=== PATIENT | male | born 1985 | race Asian ===

== ENCOUNTER 2017-10-20 19:55 | Emergency (ER) | payer OTHER, SELFPAY ==
[2017-10-20 20:10] VITALS: BP 153/107; PULSE 73; RESP 16; TEMP 36.9; O2SAT 98; BMI 31.0
--- NOTE | 2017-10-20 20:10 | ED_ITS ---
HPI - Skin/Abscess/Foreign Bdy <XIANG Marcos - Last Filed: 10/20/17 22:19> General Chief complaint: Skin/Abscess/Foreign Body Stated complaint: ABCESS ON BUTT NOT SURE WHAT IT IS Time Seen by Provider: 10/20/17 20:09 History of Present Illness HPI narrative: 31-year-old male here for complaint of a small red raised area to his left lower extremity for the past few days. He denies any trauma to the area. He denies any drainage from the area. He states that it seems like this is an abscess as it has similar symptoms to a previous abscess that he had to his right hip area. He denies any fevers or chills. Increased pain with palpation of the area. No other concerns or complaints at this time. Related Data Previous Rx's Medication Instructions Recorded clindamycin HCl 300 mg PO QID #28 cap 10/20/17 Review of Systems <XIANG Marcos - Last Filed: 10/20/17 22:19> Constitutional Denies chills, Denies fever(s), Denies lethargy and Denies weakness Eyes Denies change in vision, Denies eye discharge, Denies irritation and Denies loss of vision ENT Ears, Nose, Mouth, and Throat: Denies change in voice, Denies neck pain and Denies sore throat Cardiovascular Denies chest pain, Denies irregular heart rhythm, Denies lightheadedness, Denies palpitations, Denies dyspnea, Denies dyspnea on exertion and Denies orthopnea Respiratory Denies cough, Denies dyspnea, Denies dyspnea on exertion and Denies wheezing Gastrointestinal Gastrointestinal: Denies abdominal pain, Denies change in bowel habits, Denies diarrhea, Denies nausea and Denies vomiting Genitourinary Denies hematuria, Denies flank pain, Denies urinary incontinence and Denies urinary urgency Musculoskeletal Denies neck pain Integumentary/Breasts Reports furuncle Neurologic Denies confusion, Denies loss of vision and Denies weakness Psychiatric Denies anxiety, Denies confusion, Denies depression, Denies homicidal ideation and Denies suicidal ideation Endocrine Denies palpitations Allergic/Immunologic Denies wheezing Exam <XIANG Marcos - Last Filed: 10/20/17 22:19> Initial Vital Signs Initial Vital Signs: Vital Signs Temperature 98.4 F 10/20/17 20:10 Pulse Rate 73 10/20/17 20:10 Respiratory Rate 16 10/20/17 20:10 Blood Pressure 153/107 H 10/20/17 20:10 Pulse Oximetry 98 10/20/17 20:10 Const General: cooperative and well developed Nutritional Appearance: well nourished Orientation: alert, awake, oriented x3 and not confused [facility] Mouth: oral mucosae normal and moist mucous membranes Eyes Conjunctivae: conjunctivae normal Sclera: sclerae normal Pupils: PERRL EOM: EOM intact bilaterally Resp Effort & Inspection: normal respiratory effort, able to speak in complete sentences, no respiratory distress and no use of accessory muscles Auscultation: clear to auscultation bilaterally, no rales, no rhonchi and no wheezes Cardio Rate: regular rate Rhythm: regular rhythm Heart Sounds: no click, no gallops, no murmurs and no rubs Skin General: no rashes or lesions noted, No jaundice and No petechiae Extrem General: full ROM, no clubbing, cyanosis or edema, no pedal edema and no calf tenderness Other: 2.5 cm erythematous circular lesion to the left lateral marshall. Slight induration and fluctuance felt. No drainage. No surrounding erythema. Distal CMS is intact. <Eris Del Rio DO - Last Filed: 10/20/17 22:46> Initial Vital Signs Initial Vital Signs: Vital Signs Temperature 98.4 F 10/20/17 20:10 Pulse Rate 73 10/20/17 20:10 Respiratory Rate 16 10/20/17 20:10 Blood Pressure 153/107 H 10/20/17 20:10 Pulse Oximetry 98 10/20/17 20:10 Procedures <XIANG Marcos - Last Filed: 10/20/17 22:19> Abscess I/D Site: lower extremity Side (if applicable): left Sedation/analgesia: none Local Anesthetic: lidocaine 1% Amount of anesthesia used (mL): 2 Technique: incised with #11 blade Irrigation: Yes Packing used?: none Course <XIANG Marcos - Last Filed: 10/20/17 22:19> Orders Ordered: Discontinued Medications Clindamycin HCl (Cleocin) 300 mg PO NOW ONE Stop: 10/20/17 21:33 Last Admin: 10/20/17 21:34 Dose: 300 mg Vital Signs - 8 hr 07/07/18 20:10 10/20/17 21:45 10/20/17 21:48 Temperature 98.4 F 98.0 F Pulse Rate 73 71 73 Respiratory Rate 16 16 18 Blood Pressure 153/107 H 138/96 H Blood Pressure [Left Arm] 144/97 H Pulse Oximetry 98 98 98 <Eris Del Rio DO - Last Filed: 10/20/17 22:46> Orders Ordered: Discontinued Medications Clindamycin HCl (Cleocin) 300 mg PO NOW ONE Stop: 10/20/17 21:33 Last Admin: 10/20/17 21:34 Dose: 300 mg Vital Signs - 8 hr 10/20/17 20:10 10/20/17 21:45 10/20/17 21:48 Temperature 98.4 F 98.0 F Pulse Rate 73 71 73 Respiratory Rate 16 16 18 Blood Pressure 153/107 H 138/96 H Blood Pressure [Left Arm] 144/97 H Pulse Oximetry 98 98 98 MDM - Skin/Abscess/Foreign Bdy <XIANG Marcos - Last Filed: 10/20/17 22:19> MDM Narrative Medical decision making narrative: Signs and symptoms presents as starting abscess to the left lower extremity. Incise and drainage was completed with small amount of purulent drainage removed. Wound was irrigated with 50 ml of normal saline he is placed on clindamycin. [id number] Tylenol and Motrin as needed for any discomfort. FOLLOW UP WITH PRIMARY CARE PROVIDER IN THE NEXT COUPLE DAYS FOR RE-EVALUATION. FOR ANY WORSENING SYMPTOMS RETURN EMERGENCY ROOM. Discharge Plan Departure Patient Disposition: Home, Self-Care Clinical Impression: Abscess of left lower extremity Discharge Date/Time: 10/20/17 21:49 Interventions: ED Discharge Assessment Last Done: 10/20/17 21:48 Instructions: DI for Incision and Drainage of a Skin Abscess Activity Restrictions/Additional Instructions: Signs and symptoms presents as starting abscess to the left lower extremity. Incision and drainage was completed in the emergency room to drain purulent material. You have been placed on antibiotic use as directed. Use over-the- counter Tylenol and Motrin as needed for any discomfort. Dress wound area daily with bacitracin and a dressing. Follow up with her primary care provider in the next couple days for re-evaluation. For any worsening symptoms return to the emergency room. Prescriptions: New clindamycin HCl 300 mg capsule 300 mg PO QID Qty: 28 RF: 0 Referrals: [facility] [Provider Group] <Eris Del Rio, DO - Last Filed: 10/20/17 22:46> Cosign ED Attending Wyatt Attestation: I was immediately available in the department for consultation. Documentation has been reviewed. I agree with assessment and plan.
[2017-10-20] MEDS: CLINDAMYCIN 150 MG CAPSULE 300 MG PO (21:34)
[2017-10-20 21:45] VITALS: BP 144/97; PULSE 71; RESP 16; TEMP 36.7; O2SAT 98
[2017-10-20 21:48] VITALS: BP 138/96; PULSE 73; RESP 18; O2SAT 98
== END 2017-10-20 21:49 | disposition home or self-care (01) ==
PROVIDERS: Emergency Provider Nurse Practitioner Family
DX: L02.31 Cutaneous abscess of buttock (principal)
CPT/HCPCS: 99283

== ENCOUNTER 2018-09-03 10:10 | Emergency (ER) | payer OTHER, SELFPAY ==
[2018-09-03 10:16] VITALS: BP 181/119; PULSE 96; RESP 18; TEMP 36.7; O2SAT 100; BMI 29.5
--- NOTE | 2018-09-03 12:28 | ED_ITS ---
HPI - Skin/Abscess/Foreign Bdy <XIANG Wright - Last Filed: 09/03/18 13:04> General Chief complaint: Skin/Abscess/Foreign Body Stated complaint: Cyst/infection below belly button Time Seen by Provider: 09/03/18 10:26 Source: patient Mode of arrival: ambulatory Limitations: no limitations History of Present Illness HPI narrative: 32-year-old male with a history of simple multiple abscesses, complains of an abscess below knees or starting about a week ago and increasing in size the past 3 days. Associated mild dull achy pain that is worse with touching the area, and is nonradiating. Denies fever, chills, nausea, vomiting, change in bowel movements, diaphoresis, shortness of breath, chest pain, or taking any medication. MD complaint: abscess/boil Onset (ago): day(s) Tetanus up to date: yes Severity: mild Quality: aching Pain Consistency: constant Relieving factors: none Exacerbating factors: movement Context: none Associated symptoms: denies other symptoms Treatments prior to arrival: none Related Data Previous Rx's Medication Instructions Recorded sulfamethoxazole-trimethoprim 1 tab PO BID #7 tab 09/03/18 [Bactrim DS] Allergies Allergy/AdvReac Type Severity Reaction Status Date / Time No Known Drug Allergies Allergy Verified 09/03/18 10:16 Review of Systems <XIANG Wright - Last Filed: 09/03/18 13:04> Constitutional Denies body ache(s), Denies chills, Denies fatigue, Denies fever(s), Denies malaise and Denies night sweats Eyes Denies change in vision ENT Ears, Nose, Mouth, and Throat: Denies vertigo and Denies dizziness Cardiovascular Denies chest pain and Denies dyspnea Respiratory Denies cough and Denies dyspnea Gastrointestinal Gastrointestinal: Denies loose stools, Denies nausea and Denies vomiting Musculoskeletal Denies tingling Integumentary/Breasts Denies bleeding lesions, Reports lesions, Reports erythema, Reports skin pain and Reports skin swelling Neurologic Denies behavioral changes, Denies vertigo, Denies dizziness and Denies tingling Psychiatric Denies anxiety and Denies behavioral changes Endocrine Denies fatigue Hematologic/Lymphatic Denies lymphadenopathy PFSH <XIANG Wright - Last Filed: 09/03/18 13:04> Medical History Abscess (Chronic) Social History Smoking Status: Current every day smoker Social History Smoking Status: Current every day smoker Exam <XIANG Wright - Last Filed: 09/03/18 13:04> Initial Vital Signs Initial Vital Signs: Vital Signs Temperature 98.0 F 09/03/18 10:16 Pulse Rate 96 H 09/03/18 10:16 Respiratory Rate 18 09/03/18 10:16 Blood Pressure 181/119 H 09/03/18 10:16 Pulse Oximetry 100 09/03/18 10:16 Const General: cooperative, healthy appearing, comfortable, well developed and well groomed Nutritional Appearance: average body habitus Orientation: alert, awake and oriented x3 HENMT Head: normal to inspection Nose: external nose normal Face and sinus: normal facial exam Mouth: oral mucosae normal Eyes General: appearance normal, both eyes and all related structures Neck Neck: normal visual inspection Resp Effort & Inspection: normal respiratory effort, no cough, no grunting and not labored Auscultation: clear to auscultation bilaterally Cardio Rate: regular rate Rhythm: regular rhythm Heart Sounds: S1 normal and S2 normal GI Inspection: normal to inspection Skin Lesions: lesion noted (3x2 cm abscess, redish/brown in color with soft center & hard edges ) Rashes: no rashes Trauma: no lacerations or abrasions Wounds: wounds noted Hair: normal Nails: normal Other: Redness spreading beyond the wound boarders. Neuro General: alert, awake and oriented x3 Cognition: normal cognition Speech: speech normal Gait: normal gait Extrem General: normal to inspection Psych Appearance: grossly normal Mental Status: mental status grossly normal Speech and Movement: speech and movement normal Affect: normal affect Attitude: cooperative Thought Process: normal Thought Content: normal Judgment: judgment good <Maribel Bertrand MD - Last Filed: 09/03/18 19:48> Initial Vital Signs Initial Vital Signs: Vital Signs Temperature 98.0 F 09/03/18 10:16 Pulse Rate 96 H 09/03/18 10:16 Respiratory Rate 18 09/03/18 10:16 Blood Pressure 181/119 H 09/03/18 10:16 Pulse Oximetry 100 09/03/18 10:16 Procedures <XIANG Wright - Last Filed: 09/03/18 13:04> Abscess I/D Site: abdomen Local Anesthetic: lidocaine 1% and bupivacaine 0.5% Amount of anesthesia used (mL): 6 Technique: incised with #11 blade Amount of fluid expressed (mL): 5 Irrigation: Yes Packing used?: plain Course <XIANG Wright - Last Filed: 09/03/18 13:04> Course Narrative: Staffed with Dr. Bertrand, who agrees with plan of care. A a 2 cm incision was made into the center of the abscess, pus and serosanguineous fluid was drained. Wound was packed with 4 cm of sterile gauze. Covered with bandage. Decision to Admit time: 12:30 Vital Signs - 8 hr 09/03/18 13:02 Pulse Rate 62 Respiratory Rate 14 Blood Pressure 156/111 H Pulse Oximetry 99 <Maribel Bertrand MD - Last Filed: 09/03/18 19:48> Vital Signs - 8 hr 09/03/18 13:02 Pulse Rate 62 Respiratory Rate 14 Blood Pressure 156/111 H Pulse Oximetry 99 MDM - Skin/Abscess/Foreign Bdy <XIANG Wright - Last Filed: 09/03/18 13:04> Differential Diagnosis Likely abscess of skin or subcutaneous tissue Medical Records Attestation: I reviewed the patient's medical records. Lab Data Attestation: I reviewed the patient's lab results. MDM Narrative Medical decision making narrative: I suspect there is a bit of cellulitis surrounding the abscess due to the redness that is spreading beyond the wound borders. Antibiotics were prescribed for this reason, specifically to cover for MRSA as patient is in the [place]. Return precautions for worsening of infection given. Discharge Plan Departure Patient Disposition: Home Clinical Impression: Abscess of skin or subcutaneous tissue Qualifiers: Site of cutaneous abscess: trunk Site of cutaneous abscess of trunk: abdominal wall Qualified Code(s): L02.211 - Cutaneous abscess of abdominal wall Cellulitis Qualifiers: Site of cellulitis: trunk Site of cellulitis of trunk: abdominal wall Qualified Code(s): L03.311 - Cellulitis of abdominal wall Discharge Date/Time: 09/03/18 13:02 Interventions: ED Discharge Assessment Last Done: 09/03/18 13:02 Instructions: DI for Incision and Drainage of a Skin Abscess Activity Restrictions/Additional Instructions: Thank you for entrusting the care today. As discussed pain have lanced a small area of your abscess and packed it with a small amount of sterile gauze. Please leave the sterile gauze packing in place for 24 hours, after that you may remove it. I prescribed you antibiotics, please take as directed until they are gone. If you develop fever, chills, the wound gets bigger, increased drainage, chest pain, shortness of breath please return to the emergency department. Follow up with her primary care provider as needed. Prescriptions: New sulfamethoxazole-trimethoprim [Bactrim DS] 800-160 mg tablet 1 tab PO BID Qty: 7 RF: 0
[2018-09-03 13:02] VITALS: BP 156/111; PULSE 62; RESP 14; O2SAT 99
== END 2018-09-03 13:02 | disposition home or self-care (01) ==
PROVIDERS: Emergency Provider Nurse Practitioner
DX: L02.211 Cutaneous abscess of abdominal wall (principal); L03.311 Cellulitis of abdominal wall
CPT/HCPCS: 10060; 99282; 99283

== ENCOUNTER 2018-12-12 09:09 | Emergency (ER) | payer OTHER, SELFPAY ==
[2018-12-12 09:13] VITALS: BP 153/99; PULSE 62; RESP 18; TEMP 36.7; O2SAT 100; BMI 30.2
--- NOTE | 2018-12-12 09:24 | PC.NURSE ---
scab, came off, one small puncture like hole, draining dark blood, no abscess palpated. denies abdominal pain with palpation.
--- NOTE | 2018-12-12 09:45 | ED.SKABFB ---
HPI - Skin/Abscess/Foreign Bdy General Chief complaint: Skin/Abscess/Foreign Body Stated complaint: ABSCESS BLEEDING Time Seen by Provider: 12/12/18 09:17 Source: patient Mode of arrival: ambulatory Limitations: no limitations History of Present Illness HPI narrative: Patient complains of a wound and bleeding in the midline of his abdomen where his belt rubs for the last couple of days. Patient states that he has not had any pain there. No renewed swelling, fluctuance, or erythema. No fevers. Patient states that he had an abscess there about a month or 2 ago that was drained and healed on its own. He states that he fell it had completely healed until now. No other complaints at this time. Related Data Home Medications Medication Instructions Recorded Confirmed atorvastatin 20 mg PO DAILY 12/12/18 12/12/18 metformin 500 mg PO Q8H 12/12/18 12/12/18 Allergies Allergy/AdvReac Type Severity Reaction Status Date / Time No Known Drug Allergies Allergy Verified 12/12/18 09:20 Review of Systems Constitutional Constitutional: Denies chills, Denies fatigue, Denies fever(s), Denies frequent falls, Denies lethargy and Denies weakness Eyes Eyes: Denies change in vision, Denies eye discharge, Denies irritation and Denies loss of vision ENT Ears, Nose, Mouth, and Throat: Denies change in voice, Denies dizziness, Denies neck pain, Denies sore throat and Denies throat swelling Cardiovascular Cardiovascular: Denies chest pain, Denies irregular heart rhythm, Denies lightheadedness, Denies palpitations, Denies dyspnea, Denies dyspnea on exertion and Denies orthopnea Respiratory Respiratory: Denies cough, Denies dyspnea, Denies dyspnea on exertion and Denies wheezing Gastrointestinal Gastrointestinal: Denies abdominal pain, Denies change in bowel habits, Denies diarrhea, Denies nausea and Denies vomiting Genitourinary Genitourinary: Denies hematuria, Denies flank pain, Denies urinary incontinence and Denies urinary urgency Musculoskeletal Musculoskeletal: Denies back pain, Denies muscle weakness, Denies neck pain, Denies numbness and Denies tingling Integumentary/Breasts Skin/Breast: Denies pruritus, Denies erythema, Denies rash and Reports wounds Neurologic Neurologic: Denies behavioral changes, Denies confusion, Denies dizziness, Denies frequent falls, Denies loss of vision, Denies numbness, Denies tingling and Denies weakness Psychiatric Psychiatric: Denies anxiety, Denies behavioral changes, Denies confusion, Denies depression, Denies homicidal ideation and Denies suicidal ideation Endocrine Endocrine: Denies fatigue, Denies flushing and Denies palpitations Hematologic/Lymphatic Hematologic/Lymphatic: Denies easy bruising Allergic/Immunologic Allergic/Immunologic: Denies urticaria, Denies throat swelling and Denies wheezing [facility] Medical History Abscess (Chronic) Surgical History No pertinent past surgical history (Acute) Social History Smoking Status: Current every day smoker Social History Smoking Status: Current every day smoker Exam Initial Vital Signs Initial Vital Signs: Vital Signs Temperature 98.1 F 12/12/18 09:13 Pulse Rate 62 12/12/18 09:13 Respiratory Rate 18 12/12/18 09:13 Blood Pressure 153/99 H 12/12/18 09:13 Pulse Oximetry 100 12/12/18 09:13 Const General: cooperative and well developed Nutritional Appearance: well nourished Orientation: alert, awake, oriented x3 and not confused [facility] Head: normocephalic and atraumatic Ears: external ears normal and TM's normal bilaterally Nose: external nose normal and No nasal discharge Face and sinus: sinuses nontender, face symmetric, no sinus tenderness and No dry mucous membranes Mouth: oral mucosae normal and moist mucous membranes Teeth and gingiva: dentition normal Throat: tonsils normal and uvula midline Eyes General: appearance normal, both eyes and all related structures Eyelids: eyelids normal Conjunctivae: conjunctivae normal Sclera: sclerae normal Pupils: PERRL EOM: EOM intact bilaterally Neck Neck: normal visual inspection, trachea midline, No lymphadenopathy, No midline deformity and No JVD Lymphatic: No lymphedema Chest Chest: normal inspection of the chest Resp Effort & Inspection: normal respiratory effort, able to speak in complete sentences, no respiratory distress and no use of accessory muscles GI Inspection: non-distended Palpation: soft, No guarding and No tender Other: Patient has a 2 mm diameter, superficial skin tear, from which can be expressed a very small amount of dark, older appearing bloody drainage. No purulence. No induration or fluctuance. No erythema surrounding the area. Back/Spine/Pelvis Back: No CVA tenderness Cervical Spine: cervical ROM normal and No pain with cervical ROM Thoracic/Lumbar Spine: thoracic and lumbar spine normal to inspection Skin General: no rashes or lesions noted, No jaundice and No petechiae Neuro General: alert, oriented x3, gait normal and no focal motor deficits Speech: speech normal Extrem General: full ROM, no clubbing, cyanosis or edema, no pedal edema and no calf tenderness Psych Appearance: well kempt Mental Status: mental status grossly normal Attitude: cooperative Thought Content: normal and suicidality Judgment: judgment good Course Course Course Narrative: I discussed with the patient that there is no evidence of infection at this time. Most likely, the delicate new skin that has been lied down by the healing incision and drainage site has been subjected to friction and pressure from the waist band of the patient's pants, as well as his belt. Given the delicate and still healing condition of the skin and underlying tissues, this is most likely caused the skin to tear. The patient may dress the wound at home, and should avoid any pressure or friction over the area if at all possible. We have discussed follow-up as well as the usual indications for return. Vital Signs Vital signs: Vital Signs - 8 hr 12/12/18 09:13 Temperature 98.1 F Pulse Rate 62 Respiratory Rate 18 Blood Pressure 153/99 H Pulse Oximetry 100 MDM - Skin/Abscess/Foreign Bdy Medical Records Attestation: I reviewed the patient's medical records. Discharge Plan Departure Patient Disposition: Home Clinical Impression: Skin tear Activity Restrictions/Additional Instructions: There is no evidence of infection or a renewed abscess at this time. Most likely, the constant friction from your pants waistline or belt has caused the newly deposited, delicate skin to tear. This will heal again on its own, but should be kept free from rubbing, pressure, or friction if at all possible. Prescriptions: No Action atorvastatin 20 mg tablet 20 mg PO DAILY RF: 0 metformin 500 mg tablet extended release 24 hr 500 mg PO Q8H RF: 0 Referrals: [facility] [Provider Group]
== END 2018-12-12 10:10 | disposition home or self-care (01) ==
PROVIDERS: Emergency Provider Emergency Medicine
DX: S31.109A Unspecified open wound of abdominal wall, unspecified quadrant without penetration into peritoneal cavity, initial encounter (principal)
CPT/HCPCS: 99282